=== PATIENT | male | born 1980 ===

== ENCOUNTER 2025-07-06 12:49 | Emergency (ER) | payer OTHER ==
[~2025-07-06] VITALS: Ht 175.3 cm; Wt 76.2 kg
== END 2025-07-06 13:14 | disposition home or self-care (01) ==
LOC: ER 12:49
DX: M25.561 Pain in right knee (principal); Y35.839A Legal intervention involving a conducted energy device, unspecified person injured, initial encounter
CPT/HCPCS: 99283